=== PATIENT | female | born 1940 | race Caucasian/White ===

== ENCOUNTER → 2023-07-11 12:38 | Outpatient (REF) | payer MEDICARE, OTHER, SELFPAY | LOC: RAD 12:38 | PROVIDERS: ATTENDING PHYSICIAN Surgery Vascular Surgery; FAMILY PHYSICIAN Emergency Medicine | DX: I73.9 Peripheral vascular disease, unspecified (principal) | CPT/HCPCS: 93922; 93925 ==

== ENCOUNTER 2023-09-09 11:05 | Emergency (ER) | payer MEDICARE, OTHER, SELFPAY ==
[2023-09-09 11:11] VITALS: BP 148/83
--- NOTE | 2023-09-09 11:28 | ED.GENMED ---
History of Present Illness
<Adrian Proctor PA-C - Last Filed: 09/09/23 17:56>
General
Chief Complaint: Anxiety
Source: patient
Time Seen by Provider: 09/09/23 11:15
Travel History
Have you had any contact with someone who has COVID-19?: No
Do you have any symptoms of coronavirus? Fever > 100 degrees, chills, cough, shortness of breath, sore throat, loss of taste or smell, muscle aches, or headache?: No
History of Present Illness
History of Present Illness:
83-year-old female presents from [facility] where she lives independently with complaints of fatigue chills sweats and overwhelming anxiety and depression. Last week she was at the [place] for 4 days for evaluation of her mental health. She states
she could not deal with it there as it was too cold. She was always wearing a jacket. She does note ongoing chills and sweats with increased urination. She denies any fever or cough. She is on Effexor, Latuda and trazodone for history of
bipolar. She states her mental health is not good she can go on living like this. She denies thoughts of hurting herself but her will to live his diminished. No other complaints at this time
Past History
<Adrian Proctor PA-C - Last Filed: 09/09/23 17:56>
Past History
ED Past Medical History: Cancer (Colon CA, skin CA Basal cell), COPD, HTN, Psychiatric (Anxiety, depression) and Other (SBO,, PNA, Valve disorder )
ED Past Surgical History: Appendectomy, Bowel resection (Colon resection), Cardiac (Heart surgery mass removed), Gynecological (Hysterectomy), Orthopedic (Right leg reconstruction, Spinal surgery) and Other (cataracts)
Social History
Tobacco: Smoker
Alcohol: None
Drug: None
Personal:
Living: alone
Family History
Family History: Other (NA)
Phy Exam
<Adrian Proctor PA-C - Last Filed: 09/09/23 17:56>
Physical Exam
Physical Exam:
General: Well-appearing female no acute respiratory distress
HEENT: Normocephalic atraumatic
Heart: Regular rate and rhythm no murmurs
Lungs: Slightly coarse at the bases
Abdomen is soft nontender
Extremities: No cyanosis
Psychiatric: Admits to depression with a flat affect denies thoughts of harming self or others. Denies hallucinations. Notes that her will to live is diminishing.
Course
<Adrian Proctor PA-C - Last Filed: 09/09/23 17:56>
Orders/Labs/Results
Orders:
Orders
09/09/23 11:26
CR Chest - 2 Views Urgent
Comment:
Reason For Exam: chills, fatigue
09/09/23 11:29
Crisis Consult Urgent
Reason for Consult: depression
09/09/23 11:48
Basic Metabolic Panel Urgent
Complete Blood Count/With Diff Urgent
TSH Reflex To Free T4 Urgent
Comment: ADD ON
09/09/23 12:13
Add On- LAB Urgent
Tests Added?: tsh reflex to
09/09/23 12:39
Urinalysis Reflex To Culture Urgent
Date Specimen was Collected: 09/09/23
Time Specimen was Collected: 12:36
09/09/23 17:30
COVID-19 Antigen Urgent
Source: Nasal Swab
09/09/23 19:57
Diltiazem [Cardizem] 120 mg PO NOW STA
09/09/23 20:00
Lurasidone HCl [Latuda] 60 mg PO QPM
09/09/23 22:00
Alprazolam [Xanax] 0.25 mg PO HS
Trazodone [Desyrel] 50 mg PO HS
Abnormal Lab Results
09/09/23
11:48
RBC 3.25 L 10^6/uL
(4.20-5.40)
Hgb 9.7 L g/dL
(12.0-16.0)
Hct 28.8 L %
(37.0-47.0)
Plt Count 427 H 10^3/uL
(130-400)
Absolute Monos (auto) 0.9 H 10^3/uL
(0.1-0.6)
Monocytes % 9.7 H %
(1.7-9.3)
BUN 30 H mg/dl
(7-17)
Glucose 109 H mg/dl
(70-99)
Calcium 10.3 H mg/dl
(8.4-10.2)
09/09/23 11:48
09/09/23 11:48
Vital Signs
Initial and Last Documented VS:
Initial Vital Signs
Temp Pulse Resp BP Pulse Ox
36.6 C 89 16 148/83 100
09/09/23 11:11 09/09/23 11:11 09/09/23 11:11 09/09/23 11:11 09/09/23 11:11
Last Documented Vital Signs
Temp Pulse Resp BP Pulse Ox
36.6 C 79 16 148/83 99
09/09/23 11:11 09/09/23 11:55 09/09/23 11:11 09/09/23 11:11 09/09/23 11:55
<Zeyad Wild MD - Last Filed: 09/09/23 20:01>
Orders/Labs/Results
Orders:
Orders
09/09/23 11:26
CR Chest - 2 Views Urgent
Comment:
Reason For Exam: chills, fatigue
09/09/23 11:29
Crisis Consult Urgent
Reason for Consult: depression
09/09/23 11:48
Basic Metabolic Panel Urgent
Complete Blood Count/With Diff Urgent
TSH Reflex To Free T4 Urgent
Comment: ADD ON
09/09/23 12:13
Add On- LAB Urgent
Tests Added?: tsh reflex to
09/09/23 12:39
Urinalysis Reflex To Culture Urgent
Date Specimen was Collected: 09/09/23
Time Specimen was Collected: 12:36
09/09/23 17:30
COVID-19 Antigen Urgent
Source: Nasal Swab
09/09/23 19:57
Diltiazem [Cardizem] 120 mg PO NOW STA
09/09/23 20:00
Lurasidone HCl [Latuda] 60 mg PO QPM
09/09/23 22:00
Alprazolam [Xanax] 0.25 mg PO HS
Trazodone [Desyrel] 50 mg PO HS
Abnormal Lab Results
09/09/23
11:48
RBC 3.25 L 10^6/uL
(4.20-5.40)
Hgb 9.7 L g/dL
(12.0-16.0)
Hct 28.8 L %
(37.0-47.0)
Plt Count 427 H 10^3/uL
(130-400)
Absolute Monos (auto) 0.9 H 10^3/uL
(0.1-0.6)
Monocytes % 9.7 H %
(1.7-9.3)
BUN 30 H mg/dl
(7-17)
Glucose 109 H mg/dl
(70-99)
Calcium 10.3 H mg/dl
(8.4-10.2)
09/09/23 11:48
09/09/23 11:48
Vital Signs
Initial and Last Documented VS:
Initial Vital Signs
Temp Pulse Resp BP Pulse Ox
36.6 C 89 16 148/83 100
09/09/23 11:11 09/09/23 11:11 09/09/23 11:11 09/09/23 11:11 09/09/23 11:11
Last Documented Vital Signs
Temp Pulse Resp BP Pulse Ox
36.6 C 79 16 148/83 99
09/09/23 11:11 09/09/23 11:55 09/09/23 11:11 09/09/23 11:11 09/09/23 11:55
<Adrian Proctor PA-C - Last Filed: 09/09/23 17:56>
MDM/Problems Addressed
Differential Diagnosis Includes:
Depression anxiety. She also has chills and sweats. Will evaluate for any underlying medical issues such as UTI or pneumonia check labs. Crisis consult placed as well
<Adrian Proctor PA-C - Last Filed: 09/09/23 17:56>
*Critical Care Note
Total Time (30-74mins, 75-104mins- exclusive of procedures): Not Applicable
<Adrian Proctor PA-C - Last Filed: 09/09/23 17:56>
Update Note
Update Note:
Patient medically is stable. She has been evaluated by crisis secondary to her depression and decreasing will to live. Crisis evaluated her. Waiting placement in [facility]. They contacted [facility] who has a bed.
Patient still stable. She is willing to wait for bed at [facility]. She does require treatment inpatient psych facility and is medically cleared to do so.
<Zeyad Wild MD - Last Filed: 09/09/23 20:01>
Update Note
Update Note:
Patient medically is stable. She has been evaluated by crisis secondary to her depression and decreasing will to live. Crisis evaluated her. Waiting placement in [facility]. [facility].
Patient still stable. She is willing to wait for bed at [facility]. She does require treatment inpatient psych facility and is medically cleared to do so.
UPDATE (Zeyad Wild MD)
Patient requesting her home nighttime medications�nurse updated medication list and I ordered for home doses.
ED Attending Note
<Adrian Proctor PA-C - Last Filed: 09/09/23 17:56>
-
Portions of this chart may have been created with voice recognition software.� Occasional wrong word or��sound alike� substitutions may have occurred due to the inherent limitations of voice recognition software.
Discharge Plan
Departure
Patient Disposition: Psych Facility
Date of Disposition: 09/09/23
Time of Disposition: 17:55
Discharge Problem:
Depression
Prescriptions:
No Action
aspirin 81 mg Tablet,Delayed Release (Dr/Ec)
81 mg PO DAILY
cholecalciferol (vitamin D3) [Vitamin D3] 125 mcg (5,000 unit) Tablet
125 mcg PO FR@0800
PreserVision AREDS 2,148 mcg-113 mg-45 mg-17.4mg Tablet
1 tab PO BID
clopidogrel 75 mg Tablet
75 mg PO DAILY Qty: 90 0RF
latanoprost 0.005 % Drops
1 drp BOTH EYES HS
nicotine 14 mg/24 hr Patch 24 Hour
1 patch TRANSDERMAL DAILY
Patient Comments:
09/09/2023, pt. currently wearing a patch on her chest.
trazodone 50 mg Tablet
50 mg PO HS
methylphenidate HCl 10 mg tablet
5 mg PO TID@0800,12,17
venlafaxine 150 mg Capsule,Extended Release 24hr
150 mg PO DAILY
acetaminophen [Tylenol Extra Strength] 500 mg Tablet
1,000 mg PO Q6H PRN (Reason: mild pain)
alprazolam 0.25 mg Tablet
0.25 mg PO HS
diltiazem HCl 120 mg Capsule,Extended Release 24hr
120 mg PO BID
hydrochlorothiazide 25 mg Tablet
25 mg PO DAILY
losartan 100 mg Tablet
100 mg PO DAILY
carboxymethylcellulose sodium [Refresh] 1 % Drops, Liquid Gel
2 drp BOTH EYES DAILYPRN PRN (Reason: dry eyes)
Simbrinza 1-0.2 % Drops,Suspension
1 drp BOTH EYES BID
lurasidone 60 mg Tablet
60 mg PO HS
Biotene lozenge
1 lavelle PO TIDPRN PRN (Reason: dry mouth)
atorvastatin 10 mg tablet
10 mg PO DAILY
Referrals:
Humera Ngo MD [Family Provider] -
Interventions
Interventions:
*Risk Screen - Suicide Last Done: 09/09/23 11:12
*General Assessment Last Done: 09/09/23 11:12
*Neglect/Abuse Screening Last Done: 09/09/23 11:12
*ED COVID-19 Vaccine History Last Done: 09/09/23 11:12
ED-Psychological Assessment Last Done: 09/09/23 11:14
Discharge Date and Time
Print Language: ARABIC
[2023-09-09 12:07] LABS: % Basophils 0.3 % (0-2); % Eosinophils 0.8 % (0-6); % Immature Granulocytes 0.4 % (0-0.5); % Lymphocytes 22.3 % (20.5-51.1); % Monocytes 9.7 % (1.7-9.3); % Neutrophils 66.5 % (42.2-75.2); Absolute Eosinophils 0.1 10^3/uL (0-0.7); Absolute Lymphocytes 2.1 10^3/uL (1.2-3.4); Absolute Monocytes 0.9 10^3/uL (0.1-0.6); Absolute Neutrophils 6.3 10^3/uL (1.4-6.5); Hematocrit 28.8 % (37.0-47.0); Hemoglobin 9.7 g/dL (12.0-16.0); Mean Corp Hgb Conc. 33.7 g/dL (33.0-37.0); Mean Corpuscular Hgb 29.8 pg (27.0-31.0); Mean Corpuscular Volume 88.6 fL (81.0-99.0); Mean Platelet Volume 9.5 fL (7.4-10.4); Nucleated Red Blood Cells % 0 %; Platelet Count 427 10^3/uL (130-400); Red Blood Cell Count 3.25 10^6/uL (4.20-5.40); White Blood Cell Count 9.5 10^3/uL (4.8-10.8)
[2023-09-09 12:38] LABS: Blood Urea Nitrogen 30 mg/dl (7-17); Calcium 10.3 mg/dl (8.4-10.2); Carbon Dioxide 28 mmol/L (22-30); Chloride 103 mmol/L (98-107); Estimated Creatinine Clearance 35 ml/min; Glucose 109 mg/dl (70-99); Sodium 136 mmol/L (135-145); eGFR > 60.00
[2023-09-09 12:57] LABS: Urine Albumin Negative (Neg - Trace); Urine Bilirubin Negative (Negative); Urine Character Clear (Clear); Urine Color Yellow; Urine Glucose Negative (Negative); Urine Ketone Negative (Negative); Urine Leukocyte Negative (Negative); Urine Nitrite Negative (Negative); Urine Occult Blood Negative (Negative); Urine Specific Gravity 1.005 (<1.030); Urine Urobilinogen Negative (Neg - 1+)
[2023-09-09 14:11] LABS: TSH Reflex To Free T4 0.98 uIU/ml (0.47-4.68)
[2023-09-09 18:25] LABS: COVID-19 Antigen Negative (Negative)
[2023-09-09] MEDS: CARDIZEM 120 MG PO (21:18)
[2023-09-09] MEDS: LATUDA 60 MG PO (21:18)
[2023-09-09] MEDS: XANAX 0.25 MG PO (21:21)
[2023-09-09 21:22] VITALS: BP 150/90
[2023-09-09] MEDS: DESYREL 50 MG PO (21:22)
[2023-09-10 07:08] VITALS: BP 138/76
--- NOTE | 2023-09-10 07:13 | EDRN ---
this RN entered the pts room to introduce this RN to the pt and to obtain vital signs and assess the pt, the pt was pleasant, calm, and cooperative, the pt was agreeable to this RN obtaining vital signs, VS WNL, the pt was agreeable to assessment,
per the pts request the pts PIV was discontinued, provider was made aware, the pt is resting in stretcher in the lowest position, side rails up x1, HOB slightly elevated, the pt stated to this RN that she was cold and this RN provider fresh warm
blankets for the pt, breakfast was ordered for the pt, mental health security sergeant outside of the pts room monitoring the pt, will continue to monitor the pt closely
--- NOTE | 2023-09-10 09:20 | EDRN ---
crisis staff spoke with this RN and notified this RN that the pt will be going to [facility] today between 12 and , this RN was given the number to call verbal report and this RN attempted to call verbal report at the number of [phone] with
no answer, this RN will attempt to call back
--- NOTE | 2023-09-10 10:00 | EDRN ---
this RN attempted to call verbal report to the receiving nurse at [facility] at [phone] and this RN was transferred to the nurses station and this RN gave verbal report to Jo Ann
--- NOTE | 2023-09-10 10:56 | EDRN ---
Crisis staff notified this RN that warehouse picker time for the pt is 12pm, this RN entered the pts room to notify the pt and the pt stated to this RN that, 'I have morning medications that need to be given', this RN looked in the pts chart and noted that
there were not any morning medications ordered, this RN noticed that the medication reconciliation was performed and this RN notified Dr. Ni who stated he will look at the pts medication reconciliation
== END 2023-09-10 11:53 ==
LOC: EMR 11:05
PROVIDERS: Physician Assistant; EMERGENCY PHYSICIAN Emergency Medicine; FAMILY PHYSICIAN Emergency Medicine
DX: F32.A Depression, unspecified (principal); F41.9 Anxiety disorder, unspecified; F17.200 Nicotine dependence, unspecified, uncomplicated
CPT/HCPCS: 99285; 71046; 80048; 81003; 84443; 85025; 87811

== ENCOUNTER → 2023-12-11 12:13 | Outpatient (REF) | payer MEDICARE, OTHER, SELFPAY | LOC: RAD 12:13 | PROVIDERS: ATTENDING PHYSICIAN Surgery Vascular Surgery; FAMILY PHYSICIAN Emergency Medicine | DX: I73.9 Peripheral vascular disease, unspecified (principal) | CPT/HCPCS: 93922; 93925 ==

== ENCOUNTER → 2024-01-20 12:26 | Outpatient (REF) | payer OTHER, MEDICARE, SELFPAY ==
[2024-01-20 18:36] LABS: % Basophils 0.6 % (0-2); % Eosinophils 4.2 % (0-6); % Immature Granulocytes 0.1 % (0-0.5); % Lymphocytes 39.5 % (20.5-51.1); % Monocytes 13.3 % (1.7-9.3); % Neutrophils 42.3 % (42.2-75.2); Absolute Basophils 0.1 10^3/uL (0-0.2); Absolute Eosinophils 0.3 10^3/uL (0-0.7); Absolute Lymphocytes 3.2 10^3/uL (1.2-3.4); Absolute Monocytes 1.1 10^3/uL (0.1-0.6); Absolute Neutrophils 3.5 10^3/uL (1.4-6.5); Hematocrit 28.3 % (37.0-47.0); Hemoglobin 8.9 g/dL (12.0-16.0); Mean Corp Hgb Conc. 31.4 g/dL (33.0-37.0); Mean Corpuscular Hgb 29.7 pg (27.0-31.0); Mean Corpuscular Volume 94.3 fL (81.0-99.0); Mean Platelet Volume 9.6 fL (7.4-10.4); Nucleated Red Blood Cells % 0 %; Platelet Count 368 10^3/uL (130-400); Red Cell Dist. Width 16.6 % (11.5-14.5); White Blood Cell Count 8.2 10^3/uL (4.8-10.8)
[2024-01-20 18:48] LABS: ALT (SGPT) 10 U/L (0-35); AST (SGOT) 18 U/L (14-36); Albumin 3.5 g/dl (3.5-5.0); Alkaline Phosphatase 70 U/L (38-126); Blood Urea Nitrogen 24 mg/dl (7-17); Calcium 9.7 mg/dl (8.4-10.2); Carbon Dioxide 28 mmol/L (22-30); Chloride 106 mmol/L (98-107); Glucose 74 mg/dl (70-99); Magnesium 2.2 mg/dl (1.6-2.3); Potassium 3.5 mmol/L (3.5-5.1); Sodium 142 mmol/L (135-145); Total Bilirubin 0.3 mg/dl (0.2-1.3); Total Protein 5.6 g/dl (6.3-8.2); eGFR > 60.00
== END ==
LOC: OLABN 12:26
PROVIDERS: ATTENDING PHYSICIAN Student in an Organized Health Care Education/Training Program
DX: I10 Essential (primary) hypertension (principal); D64.9 Anemia, unspecified; E83.42 Hypomagnesemia
CPT/HCPCS: 36415; 80053; 83735; 85025

== ENCOUNTER → 2024-01-22 09:37 | Outpatient (REF) | payer OTHER, MEDICARE, SELFPAY ==
[2024-01-22 11:31] LABS: Blood Urea Nitrogen 20 mg/dl (7-17); Calcium 9.7 mg/dl (8.4-10.2); Carbon Dioxide 23 mmol/L (22-30); Chloride 107 mmol/L (98-107); Glucose 80 mg/dl (70-99); Potassium 3.5 mmol/L (3.5-5.1); Sodium 143 mmol/L (135-145); eGFR > 60.00
== END ==
LOC: OLABN 09:37
PROVIDERS: ATTENDING PHYSICIAN Student in an Organized Health Care Education/Training Program
DX: I10 Essential (primary) hypertension (principal)
CPT/HCPCS: 36415; 80048

== ENCOUNTER → 2024-01-26 12:18 | Outpatient (REF) | payer OTHER, MEDICARE, SELFPAY ==
[2024-01-26 13:56] LABS: Reticulocyte Count 1.5 % (0.4-2.8)
[2024-01-26 14:13] LABS: Iron 35 ug/dl (37-170)
[2024-01-26 14:22] LABS: Percent Saturation 12 % (20-50); Total Iron Binding Capacity 281 ug/dl (265-497)
[2024-01-26 14:42] LABS: Ferritin 18.4 ng/ml (11.1-264.0)
[2024-01-27 10:45] LABS: Folate 8.2 ng/ml (2.76-20)
[2024-01-29 03:43] LABS: Transferrin 228 mg/dL (200-360)
== END ==
LOC: OLABN 12:18
PROVIDERS: ATTENDING PHYSICIAN Student in an Organized Health Care Education/Training Program
DX: D64.9 Anemia, unspecified (principal)
CPT/HCPCS: 36415; 82728; 82746; 83540; 83550; 84466; 85045

== ENCOUNTER → 2024-01-30 12:42 | Outpatient (REF) | payer OTHER, MEDICARE, SELFPAY ==
[2024-01-30 13:28] LABS: Hematocrit 25.6 % (37.0-47.0); Hemoglobin 8.2 g/dL (12.0-16.0); Mean Corpuscular Hgb 28.3 pg (27.0-31.0); Mean Corpuscular Volume 88.3 fL (81.0-99.0); Mean Platelet Volume 9.4 fL (7.4-10.4); Platelet Count 351 10^3/uL (130-400); Red Cell Dist. Width 16.1 % (11.5-14.5); White Blood Cell Count 8.1 10^3/uL (4.8-10.8)
== END ==
LOC: OLABN 12:42
PROVIDERS: ATTENDING PHYSICIAN Student in an Organized Health Care Education/Training Program
DX: D63.8 Anemia in other chronic diseases classified elsewhere (principal); I95.9 Hypotension, unspecified
CPT/HCPCS: 36415; 85027

== ENCOUNTER → 2024-02-05 11:10 | Outpatient (REF) | payer OTHER, MEDICARE, SELFPAY ==
[2024-02-05 11:26] LABS: Hematocrit 26.3 % (37.0-47.0); Hemoglobin 8.7 g/dL (12.0-16.0); Mean Corp Hgb Conc. 33.1 g/dL (33.0-37.0); Mean Corpuscular Volume 90.7 fL (81.0-99.0); Mean Platelet Volume 9.4 fL (7.4-10.4); Platelet Count 325 10^3/uL (130-400); Red Cell Dist. Width 16.1 % (11.5-14.5)
== END ==
LOC: OLABN 11:10
PROVIDERS: ATTENDING PHYSICIAN Student in an Organized Health Care Education/Training Program
DX: D64.9 Anemia, unspecified (principal)
CPT/HCPCS: 36415; 85027

== ENCOUNTER 2024-02-11 03:23 | Emergency (ER) | payer MEDICARE, OTHER, SELFPAY ==
[2024-02-11 03:24] VITALS: BP 173/95
--- NOTE | 2024-02-11 03:57 | ED.GENMED ---
History of Present Illness
General
Chief Complaint: Fall
Source: patient and family (Daughter via telephone)
Exam Limitations: none
Time Seen by Provider: 02/11/24 03:31
Nursing documentation reviewed up to this point in time: agreed with
History of Present Illness
History of Present Illness:
This a pleasant 83-year-old female from [facility] that presents after unwitnessed fall. She is complaining of left hip pain. Patient had a similar recent fall and had a C1-C2 fracture. She is in a [place] collar. Patient denies hitting her
head. She reports no consciousness. Patient is on Plavix. Patient was unable to ambulate after the fall.
Past History
Past History
ED Past Medical History: Cancer (Colon CA, skin CA Basal cell), COPD, HTN, Psychiatric (Anxiety, depression) and Other (SBO,, PNA, Valve disorder )
ED Past Surgical History: Appendectomy, Bowel resection (Colon resection), Cardiac (Heart surgery mass removed), Gynecological (Hysterectomy), Orthopedic (Right leg reconstruction, Spinal surgery) and Other (cataracts)
Social History
Tobacco: Smoker
Alcohol: None
Drug: None
Personal:
Living: alone
Family History
Family History: Other (NA)
Review of Systems
Review of Systems
Allergies reviewed?: Yes
Other source history: family, ambulance crew and transfer record
All Other Systems: ROS reviewed and negative except as documented in HPI and ROS
Constitutional: Reports no symptoms; Denies fever
EENT: Reports no symptoms
Respiratory: Reports no symptoms
Cardiac: Reports no symptoms
ABD/GI: Reports no symptoms
: Reports no symptoms
Musculoskeletal: Reports joint pain and muscle pain
Skin: Reports no symptoms
Neurological: Denies dizzy, headache or weakness
Endocrine: Reports no symptoms
Hematologic/Lymphatic: Reports no symptoms
Psychiatric: Reports anxiety
Phy Exam
General Physical Exam
General Presentation: well appearing and no apparent distress
General Skin: warm and dry
General Habitus: normal
General Mental: alert
General Hydration: appears well hydrated
ENT Exam
ENT Exam: EOMI, pharynx normal, neck supple and normocephalic
Eye Exam
Eye Exam: PERRL, cornea clear and conjunctiva normal
Cardiovascular Exam
Cardiovascular Exam: regular rate/rhythm, no edema, no murmur and normal peripheral pulses
Pulmonary Exam
Pulmonary Exam: lungs clear, no respiratory distress, no rales, no crackles, no rhonchi, no stridor, no wheezing and no cough
Gastrointestinal Exam
Gastrointestinal Exam: normal bowel sounds, non tender, soft, no organomegaly, no pulsatile mass and non distended
Neurological Exam
Neurological Exam: alert and speech normal
Musculoskeletal Exam
Musculoskeletal Exam: joint swelling (Ecchymosis about the left lateral hip. Tenderness to palpation) and neuro vasc intact
Skin Exam
Skin Exam: other (Ecchymosis)
Psychiatric Exam
Psychiatric Exam: normal mood/affect
Course
Orders/Labs/Results
Orders:
Orders
02/11/24 03:31
Urinalysis Reflex To Culture Urgent
02/11/24 03:48
Type+Screen Urgent
Complete Blood Count/With Diff Urgent
Comprehensive Metabolic Panel Urgent
PTT Urgent
Prothrombin Time Urgent
02/11/24 03:56
CT Cervical Spine W/o Iv Contr Urgent
Comment:
Reason For Exam: known c1c2 fx
CT Head W/o Iv Contrast Urgent
Comment:
Reason For Exam: fall
HYDROmorphone [Dilaudid] 0.5 mg IV NOW STA
02/11/24 03:57
Ondansetron Injectable [Zofran] 4 mg IV NOW STA
02/11/24 04:04
CT Pelvis W/o Iv Contrast Urgent
Comment:
Reason For Exam: left hip pain
Abnormal Lab Results
02/11/24
03:48
WBC 13.0 H 10^3/uL
(4.8-10.8)
RBC 2.72 L 10^6/uL
(4.20-5.40)
Hgb 8.0 L g/dL
(12.0-16.0)
Hct 24.9 L %
(37.0-47.0)
MCHC 32.1 L g/dL
(33.0-37.0)
RDW 16.2 H %
(11.5-14.5)
Abs Immat Gran (auto) 0.1 H 10^3/uL
(0-0.05)
Absolute Neuts (auto) 9.0 H 10^3/uL
(1.4-6.5)
Absolute Monos (auto) 1.4 H 10^3/uL
(0.1-0.6)
Lymphocytes % 18.1 L %
(20.5-51.1)
Monocytes % 10.6 H %
(1.7-9.3)
APTT 35.4 H Sec
(23.4-35.0)
Glucose 100 H mg/dl
(70-99)
Total Protein 6.1 L g/dl
(6.3-8.2)
02/11/24 03:48
02/11/24 03:48
Vital Signs
Initial and Last Documented VS:
Initial Vital Signs
Temp Pulse Resp BP Pulse Ox
98.0 F 83 20 173/95 97
02/11/24 03:24 02/11/24 03:24 02/11/24 03:24 02/11/24 03:24 02/11/24 03:24
Last Documented Vital Signs
Temp Pulse Resp BP Pulse Ox
98.0 F 98 20 149/79 93
02/11/24 03:24 02/11/24 06:49 02/11/24 06:49 02/11/24 06:00 02/11/24 06:14
MDM/Problems Addressed
Differential Diagnosis Includes:
Hip fracture, contusion, musculoskeletal pain, hematoma
MDM/Problems Addressed:
83-year-old female from [facility] with left hip pain
Chronic conditions affecting care:
Subacute C1, C2 fracture of the neck, neuropathy, numbness of arm and leg, coronary artery disease, hypertension
Chronic conditions affecting care: HTN, CAD and Neurological disorder
Acute Exacerbation and/or Progression of Chronic Illness:
Acute left hip fracture. Subacute C1-C2 fracture that was nonoperative at the time of injury
*Radiology
Radiology exam reviewed: radiology read reviewed
*Critical Care Note
Total Time (30-74mins, 75-104mins- exclusive of procedures): 35 (Critical care statement: A total of 35minutes of critical care time was provided for this patient. This time is separate from time utilized to perform the aforementioned documented
procedures. Aggregate critical care time includes only time during which I was engaged in work directl)
Update Note
Update Note:
Acute nondisplaced left femoral subcapital neck fracture. Hip joint alignment is intact. Bone demineralization.
Spinal hardware. Contusions along the left buttock.
[place] texted orthopedic surgery and hospitalist for admission to the hospital. I discussed the CAT scan with patient and daughter who then contacted the other daughter via telephone. Answered several questions. They agreed to be admitted here.
After multiple conversations over [place] text and on the telephone with neurosurgery and orthopedics, orthopedics requested that patient be transferred to [facility].
[place] trauma service consulted. They stated that since this was an isolated hip fracture, patient could go to the medicine service with a consult to orthopedics.
[facility] orthopedics Dr. Chaudhari refuses to accept patient. Dr. Hollie Rodriguez excepted patient for transfer to [facility].
ED Attending Note
-
Portions of this chart may have been created with voice recognition software.� Occasional wrong word or��sound alike� substitutions may have occurred due to the inherent limitations of voice recognition software.
Discharge Plan
Departure
Patient Disposition: Acute Care Hospital
Date of Disposition: 02/11/24
Time of Disposition: 05:26
Admit to: Telemetry
Presentation/result/management discussed w/ accepting MD/DO: Hospitalist
Discharge Problem:
Closed fracture of left hip, Subacute C1-C2 fracture
Prescriptions:
No Action
aspirin 81 mg Tablet,Delayed Release (Dr/Ec)
81 mg PO DAILY
PreserVision AREDS 2,148 mcg-113 mg-45 mg-17.4mg Tablet
1 tab PO DAILY
clopidogrel 75 mg Tablet
75 mg PO DAILY Qty: 90 0RF
latanoprost 0.005 % Drops
1 drp BOTH EYES HS
nicotine 14 mg/24 hr Patch 24 Hour
1 patch TRANSDERMAL DAILY
Patient Comments:
09/09/2023, pt. currently wearing a patch on her chest.
trazodone 50 mg Tablet
50 mg PO HS
alprazolam 0.25 mg Tablet
0.25 mg PO HS
diltiazem HCl 120 mg Capsule,Extended Release 24hr
120 mg PO DAILY
Simbrinza 1-0.2 % Drops,Suspension
1 drp BOTH EYES BID
atorvastatin 10 mg tablet
10 mg PO DAILY
B-12
2,000 mcg PO DAILY
sennosides [senna] 8.6 mg Tablet
17.2 mg PO DAILY
acetaminophen 325 mg Tablet
650 mg PO Q4H PRN (Reason: mild pain/fever >100.4)
lidocaine [Lidocaine Pain Relief] 4 % Adhesive Patch,Medicated
1 patch TOPICAL DAILY
polyethylene glycol 3350 [Miralax] 17 gram Powder In Packet
17 g PO DAILY
nortriptyline 25 mg Capsule
25 mg PO HS
bupropion HCl 100 mg Tablet
100 mg PO BID
ascorbate calcium (vitamin C) 500 mg Tablet
500 mg PO DAILY
furosemide 20 mg Tablet
20 mg PO DAILY
aripiprazole 5 mg Tablet
5 mg PO DAILY
ferrous gluconate 324 mg (38 mg iron) Tablet
324 mg PO DAILY
Referrals:
Cyril Govea DO [Family Provider] -
Hospital Transfer
Other hospital: [facility]
I certify that the patient requires transfer: Yes
Discussed case with accepting physician: Liza/Eva
Reason for transfer: higher level of care, availability of service and specialties available
Interventions
Interventions:
*Risk Screen - Suicide Last Done: 02/11/24 03:24
*General Assessment Last Done: 02/11/24 03:24
*Neglect/Abuse Screening Last Done: 02/11/24 03:24
ED- Fall Risk Assessment Last Done: 02/11/24 03:33
*ED COVID-19 Vaccine History Last Done: 02/11/24 03:31
ED-Musculoskeletal Assessment Last Done: 02/11/24 04:24
ED- Neurological Assessment Last Done: 02/11/24 04:24
ED-Skin Assessment Last Done: 02/11/24 04:24
Discharge Date and Time
Print Language: FAROESE
[2024-02-11] MEDS: DILAUDID 0.5 MG IV (03:59)
[2024-02-11] MEDS: ZOFRAN 4 MG IV (03:59)
[2024-02-11 04:11] LABS: % Basophils 0.5 % (0-2); % Eosinophils 1.8 % (0-6); % Immature Granulocytes 0.4 % (0-0.5); % Lymphocytes 18.1 % (20.5-51.1); % Monocytes 10.6 % (1.7-9.3); % Neutrophils 68.6 % (42.2-75.2); APTT 35.4 Sec (23.4-35.0); Absolute Basophils 0.1 10^3/uL (0-0.2); Absolute Eosinophils 0.2 10^3/uL (0-0.7); Absolute Immature Granulocytes 0.1 10^3/uL (0-0.05); Absolute Lymphocytes 2.4 10^3/uL (1.2-3.4); Absolute Monocytes 1.4 10^3/uL (0.1-0.6); Hematocrit 24.9 % (37.0-47.0); INR 1.06; Mean Corp Hgb Conc. 32.1 g/dL (33.0-37.0); Mean Corpuscular Hgb 29.4 pg (27.0-31.0); Mean Corpuscular Volume 91.5 fL (81.0-99.0); Mean Platelet Volume 9.1 fL (7.4-10.4); Nucleated Red Blood Cells % 0 %; PT 13.6 Sec (11.4-14.6); Platelet Count 363 10^3/uL (130-400); Red Blood Cell Count 2.72 10^6/uL (4.20-5.40); Red Cell Dist. Width 16.2 % (11.5-14.5)
[2024-02-11 04:23] LABS: ALT (SGPT) 19 U/L (0-35); AST (SGOT) 23 U/L (14-36); Albumin 3.9 g/dl (3.5-5.0); Alkaline Phosphatase 72 U/L (38-126); Blood Urea Nitrogen 16 mg/dl (7-17); Calcium 9.6 mg/dl (8.4-10.2); Carbon Dioxide 25 mmol/L (22-30); Chloride 105 mmol/L (98-107); Estimated Creatinine Clearance 40 ml/min; Glucose 100 mg/dl (70-99); Potassium 3.8 mmol/L (3.5-5.1); Sodium 142 mmol/L (135-145); Total Bilirubin 0.4 mg/dl (0.2-1.3); Total Protein 6.1 g/dl (6.3-8.2); eGFR > 60.00
[2024-02-11 04:27] VITALS: BP 172/81
[2024-02-11 05:00] VITALS: BP 156/84
[2024-02-11 06:00] VITALS: BP 149/79
[2024-02-11 07:00] VITALS: BP 157/81
[2024-02-11 08:00] VITALS: BP 139/66
[2024-02-11] MEDS: MORPHINE SULFATE 4 MG IV (08:28)
== END 2024-02-11 08:39 | disposition short-term general hospital (02) ==
LOC: EMR 03:23
PROVIDERS: EMERGENCY PHYSICIAN Student in an Organized Health Care Education/Training Program; FAMILY PHYSICIAN Student in an Organized Health Care Education/Training Program
DX: S72.012A Unspecified intracapsular fracture of left femur, initial encounter for closed fracture (principal); S12.100A Unspecified displaced fracture of second cervical vertebra, initial encounter for closed fracture; S09.90XA Unspecified injury of head, initial encounter; S70.02XA Contusion of left hip, initial encounter; W19.XXXA Unspecified fall, initial encounter; Y92.129 Unspecified place in nursing home as the place of occurrence of the external cause; I10 Essential (primary) hypertension; I25.10 Atherosclerotic heart disease of native coronary artery without angina pectoris; J44.9 Chronic obstructive pulmonary disease, unspecified; F41.9 Anxiety disorder, unspecified; F32.A Depression, unspecified; G62.9 Polyneuropathy, unspecified; M19.90 Unspecified osteoarthritis, unspecified site; F17.200 Nicotine dependence, unspecified, uncomplicated; Z79.02 Long term (current) use of antithrombotics/antiplatelets; Z79.82 Long term (current) use of aspirin; Z98.0 Intestinal bypass and anastomosis status; Z85.038 Personal history of other malignant neoplasm of large intestine; Z85.828 Personal history of other malignant neoplasm of skin; Z88.5 Allergy status to narcotic agent; Z88.8 Allergy status to other drugs, medicaments and biological substances
CPT/HCPCS: 99291; 96374; 96375 ×2; 70450; 72125; 72192; 80053; 85025; 85610; 85730; 86850; 86900; 86901

== ENCOUNTER → 2024-02-24 12:41 | Outpatient (REF) | payer OTHER, MEDICARE, SELFPAY ==
[2024-02-24 13:38] LABS: % Eosinophils 3.4 % (0-6); % Immature Granulocytes 0.6 % (0-0.5); % Lymphocytes 20.5 % (20.5-51.1); % Monocytes 11.3 % (1.7-9.3); % Neutrophils 63.2 % (42.2-75.2); Absolute Basophils 0.1 10^3/uL (0-0.2); Absolute Eosinophils 0.4 10^3/uL (0-0.7); Absolute Immature Granulocytes 0.1 10^3/uL (0-0.05); Absolute Lymphocytes 2.2 10^3/uL (1.2-3.4); Absolute Monocytes 1.2 10^3/uL (0.1-0.6); Absolute Neutrophils 6.6 10^3/uL (1.4-6.5); Hematocrit 29.1 % (37.0-47.0); Hemoglobin 9.4 g/dL (12.0-16.0); Mean Corp Hgb Conc. 32.3 g/dL (33.0-37.0); Mean Corpuscular Hgb 29.7 pg (27.0-31.0); Mean Corpuscular Volume 92.1 fL (81.0-99.0); Mean Platelet Volume 8.4 fL (7.4-10.4); Nucleated Red Blood Cells % 0 %; Platelet Count 717 10^3/uL (130-400); Red Blood Cell Count 3.16 10^6/uL (4.20-5.40); Red Cell Dist. Width 15.7 % (11.5-14.5); White Blood Cell Count 10.5 10^3/uL (4.8-10.8)
[2024-02-24 13:58] LABS: Blood Urea Nitrogen 16 mg/dl (7-17); Calcium 9.4 mg/dl (8.4-10.2); Carbon Dioxide 29 mmol/L (22-30); Chloride 103 mmol/L (98-107); Glucose 91 mg/dl (70-99); Magnesium 2.1 mg/dl (1.6-2.3); Sodium 140 mmol/L (135-145); eGFR > 60.00
== END ==
LOC: OLABN 12:41
PROVIDERS: ATTENDING PHYSICIAN Student in an Organized Health Care Education/Training Program
DX: D64.9 Anemia, unspecified (principal); T50.1X5A Adverse effect of loop [high-ceiling] diuretics, initial encounter
CPT/HCPCS: 36415; 80048; 83735; 85025

== ENCOUNTER → 2024-03-11 13:21 | Outpatient (REF) | payer OTHER, MEDICARE, SELFPAY ==
[2024-03-11 13:50] LABS: % Basophils 0.8 % (0-2); % Immature Granulocytes 0.3 % (0-0.5); % Lymphocytes 34.6 % (20.5-51.1); % Monocytes 16.1 % (1.7-9.3); % Neutrophils 45.2 % (42.2-75.2); Absolute Basophils 0.1 10^3/uL (0-0.2); Absolute Eosinophils 0.2 10^3/uL (0-0.7); Absolute Lymphocytes 2.7 10^3/uL (1.2-3.4); Absolute Monocytes 1.3 10^3/uL (0.1-0.6); Absolute Neutrophils 3.6 10^3/uL (1.4-6.5); Hematocrit 30.1 % (37.0-47.0); Mean Corp Hgb Conc. 33.2 g/dL (33.0-37.0); Mean Corpuscular Hgb 30.8 pg (27.0-31.0); Mean Corpuscular Volume 92.6 fL (81.0-99.0); Mean Platelet Volume 10.3 fL (7.4-10.4); Nucleated Red Blood Cells % 0 %; Platelet Count 253 10^3/uL (130-400); Red Blood Cell Count 3.25 10^6/uL (4.20-5.40); Red Cell Dist. Width 15.8 % (11.5-14.5); White Blood Cell Count 7.9 10^3/uL (4.8-10.8)
[2024-03-11 14:11] LABS: Blood Urea Nitrogen 23 mg/dl (7-17); Calcium 9.2 mg/dl (8.4-10.2); Carbon Dioxide 26 mmol/L (22-30); Chloride 104 mmol/L (98-107); Glucose 89 mg/dl (70-99); Magnesium 2.1 mg/dl (1.6-2.3); Sodium 141 mmol/L (135-145); eGFR > 60.00
== END ==
LOC: OLABN 13:21
PROVIDERS: ATTENDING PHYSICIAN Student in an Organized Health Care Education/Training Program
DX: D63.8 Anemia in other chronic diseases classified elsewhere (principal)
CPT/HCPCS: 36415; 80048; 83735; 85025

== ENCOUNTER → 2024-03-15 11:03 | Outpatient (REF) | payer MEDICARE, OTHER, SELFPAY ==
[2024-03-15 11:37] LABS: Blood Urea Nitrogen 22 mg/dl (7-17); Calcium 9.5 mg/dl (8.4-10.2); Carbon Dioxide 30 mmol/L (22-30); Chloride 103 mmol/L (98-107); Glucose 82 mg/dl (70-99); Sodium 140 mmol/L (135-145); eGFR > 60.00
== END ==
LOC: OLABN 11:03
PROVIDERS: ATTENDING PHYSICIAN Student in an Organized Health Care Education/Training Program
DX: E87.6 Hypokalemia (principal)
CPT/HCPCS: 36415; 80048

== ENCOUNTER → 2024-04-05 11:31 | Outpatient (REF) | payer OTHER, MEDICARE, SELFPAY ==
[2024-04-05 12:19] LABS: % Eosinophils 12.2 % (0-6); % Immature Granulocytes 0.1 % (0-0.5); % Lymphocytes 38.6 % (20.5-51.1); % Monocytes 10.2 % (1.7-9.3); % Neutrophils 37.9 % (42.2-75.2); Absolute Basophils 0.1 10^3/uL (0-0.2); Absolute Eosinophils 1.1 10^3/uL (0-0.7); Absolute Lymphocytes 3.5 10^3/uL (1.2-3.4); Absolute Monocytes 0.9 10^3/uL (0.1-0.6); Absolute Neutrophils 3.4 10^3/uL (1.4-6.5); Hemoglobin 9.5 g/dL (12.0-16.0); Mean Corp Hgb Conc. 31.7 g/dL (33.0-37.0); Mean Corpuscular Hgb 29.9 pg (27.0-31.0); Mean Corpuscular Volume 94.3 fL (81.0-99.0); Mean Platelet Volume 9.2 fL (7.4-10.4); Nucleated Red Blood Cells % 0 %; Platelet Count 398 10^3/uL (130-400); Red Blood Cell Count 3.18 10^6/uL (4.20-5.40); Red Cell Dist. Width 14.7 % (11.5-14.5); White Blood Cell Count 8.9 10^3/uL (4.8-10.8)
[2024-04-05 13:09] LABS: ALT (SGPT) 10 U/L (0-35); AST (SGOT) 19 U/L (14-36); Albumin 3.5 g/dl (3.5-5.0); Alkaline Phosphatase 70 U/L (38-126); Blood Urea Nitrogen 16 mg/dl (7-17); Calcium 9.6 mg/dl (8.4-10.2); Carbon Dioxide 30 mmol/L (22-30); Chloride 102 mmol/L (98-107); Glucose 76 mg/dl (70-99); Potassium 3.4 mmol/L (3.5-5.1); Sodium 144 mmol/L (135-145); Total Bilirubin 0.3 mg/dl (0.2-1.3); eGFR > 60.00
[2024-04-05 13:12] LABS: Erythrocyte Sed Rate 23 mm/hour (0-20)
== END ==
LOC: OLABN 11:31
PROVIDERS: ATTENDING PHYSICIAN Student in an Organized Health Care Education/Training Program
DX: L08.9 Local infection of the skin and subcutaneous tissue, unspecified (principal)
CPT/HCPCS: 36415; 80053; 85025; 85652; 86140

== ENCOUNTER → 2024-04-10 07:51 | Outpatient (REF) | payer OTHER, MEDICARE, SELFPAY ==
[2024-04-10 14:23] LABS: Urine Albumin Trace (Neg - Trace); Urine Bilirubin Negative (Negative); Urine Character Clear (Clear); Urine Color Yellow; Urine Glucose Negative (Negative); Urine Ketone Negative (Negative); Urine Leukocyte Negative (Negative); Urine Nitrite Negative (Negative); Urine Occult Blood Negative (Negative); Urine Urobilinogen Negative (Neg - 1+); Urine pH 6.5 (5.0-9.0)
== END ==
LOC: CLAB 07:51
PROVIDERS: ATTENDING PHYSICIAN Student in an Organized Health Care Education/Training Program
DX: R30.9 Painful micturition, unspecified (principal); R35.0 Frequency of micturition
CPT/HCPCS: 36415; 81003; 87086

== ENCOUNTER → 2024-04-12 09:30 | Outpatient (REF) | payer OTHER, MEDICARE, SELFPAY ==
[2024-04-12 10:33] LABS: % Eosinophils 9.5 % (0-6); % Immature Granulocytes 0.2 % (0-0.5); % Lymphocytes 36.7 % (20.5-51.1); % Monocytes 12.3 % (1.7-9.3); % Neutrophils 40.3 % (42.2-75.2); Absolute Basophils 0.1 10^3/uL (0-0.2); Absolute Eosinophils 0.6 10^3/uL (0-0.7); Absolute Lymphocytes 2.2 10^3/uL (1.2-3.4); Absolute Monocytes 0.7 10^3/uL (0.1-0.6); Absolute Neutrophils 2.4 10^3/uL (1.4-6.5); Hematocrit 26.3 % (37.0-47.0); Hemoglobin 8.4 g/dL (12.0-16.0); Mean Corp Hgb Conc. 31.9 g/dL (33.0-37.0); Mean Corpuscular Hgb 30.2 pg (27.0-31.0); Mean Corpuscular Volume 94.6 fL (81.0-99.0); Mean Platelet Volume 9.4 fL (7.4-10.4); Nucleated Red Blood Cells % 0 %; Platelet Count 330 10^3/uL (130-400); Red Blood Cell Count 2.78 10^6/uL (4.20-5.40); Red Cell Dist. Width 15.3 % (11.5-14.5)
[2024-04-12 10:47] LABS: ALT (SGPT) < 10 U/L (0-35); AST (SGOT) 14 U/L (14-36); Albumin 3.1 g/dl (3.5-5.0); Alkaline Phosphatase 66 U/L (38-126); Blood Urea Nitrogen 21 mg/dl (7-17); Calcium 9.1 mg/dl (8.4-10.2); Carbon Dioxide 29 mmol/L (22-30); Chloride 104 mmol/L (98-107); Glucose 88 mg/dl (70-99); Potassium 3.3 mmol/L (3.5-5.1); Sodium 140 mmol/L (135-145); Total Bilirubin < 0.1 mg/dl (0.2-1.3); Total Protein 5.2 g/dl (6.3-8.2); eGFR > 60.00
[2024-04-12 12:27] LABS: Erythrocyte Sed Rate 15 mm/hour (0-20)
== END ==
LOC: OLABN 09:30
PROVIDERS: ATTENDING PHYSICIAN Student in an Organized Health Care Education/Training Program
DX: L08.9 Local infection of the skin and subcutaneous tissue, unspecified (principal)
CPT/HCPCS: 36415; 80053; 85025; 85652; 86140

== ENCOUNTER → 2024-04-19 09:17 | Outpatient (REF) | payer OTHER, MEDICARE, SELFPAY ==
[2024-04-19 10:56] LABS: % Basophils 0.7 % (0-2); % Eosinophils 9.5 % (0-6); % Immature Granulocytes 0.4 % (0-0.5); % Lymphocytes 13.5 % (20.5-51.1); % Monocytes 9.4 % (1.7-9.3); % Neutrophils 66.5 % (42.2-75.2); Absolute Basophils 0.1 10^3/uL (0-0.2); Absolute Eosinophils 1.1 10^3/uL (0-0.7); Absolute Lymphocytes 1.5 10^3/uL (1.2-3.4); Absolute Neutrophils 7.3 10^3/uL (1.4-6.5); Hematocrit 34.1 % (37.0-47.0); Hemoglobin 10.4 g/dL (12.0-16.0); Mean Corp Hgb Conc. 30.5 g/dL (33.0-37.0); Mean Corpuscular Hgb 30.4 pg (27.0-31.0); Mean Corpuscular Volume 99.7 fL (81.0-99.0); Mean Platelet Volume 9.6 fL (7.4-10.4); Nucleated Red Blood Cells % 0 %; Platelet Count 322 10^3/uL (130-400); Red Blood Cell Count 3.42 10^6/uL (4.20-5.40); Red Cell Dist. Width 15.1 % (11.5-14.5)
[2024-04-19 11:20] LABS: ALT (SGPT) < 10 U/L (0-35); AST (SGOT) 17 U/L (14-36); Albumin 3.7 g/dl (3.5-5.0); Alkaline Phosphatase 74 U/L (38-126); Blood Urea Nitrogen 20 mg/dl (7-17); Calcium 9.5 mg/dl (8.4-10.2); Carbon Dioxide 27 mmol/L (22-30); Chloride 104 mmol/L (98-107); Glucose 92 mg/dl (70-99); Potassium 3.6 mmol/L (3.5-5.1); Sodium 143 mmol/L (135-145); Total Bilirubin 0.2 mg/dl (0.2-1.3); eGFR > 60.00
[2024-04-19 11:56] LABS: Erythrocyte Sed Rate 15 mm/hour (0-20)
== END ==
LOC: OLABN 09:17
PROVIDERS: ATTENDING PHYSICIAN Student in an Organized Health Care Education/Training Program
DX: L08.9 Local infection of the skin and subcutaneous tissue, unspecified (principal)
CPT/HCPCS: 36415; 80053; 85025; 85652; 86140

== ENCOUNTER → 2024-04-26 10:25 | Outpatient (REF) | payer OTHER, MEDICARE, SELFPAY ==
[2024-04-26 11:31] LABS: Hematocrit 32.4 % (37.0-47.0); Hemoglobin 10.3 g/dL (12.0-16.0); Mean Corp Hgb Conc. 31.8 g/dL (33.0-37.0); Mean Corpuscular Hgb 30.9 pg (27.0-31.0); Mean Corpuscular Volume 97.3 fL (81.0-99.0); Mean Platelet Volume 9.6 fL (7.4-10.4); Platelet Count 325 10^3/uL (130-400); Red Blood Cell Count 3.33 10^6/uL (4.20-5.40); Red Cell Dist. Width 14.6 % (11.5-14.5); White Blood Cell Count 7.2 10^3/uL (4.8-10.8)
[2024-04-26 11:55] LABS: Erythrocyte Sed Rate 10 mm/hour (0-20)
[2024-04-26 12:30] LABS: ALT (SGPT) 14 U/L (0-35); AST (SGOT) 17 U/L (14-36); Albumin 3.7 g/dl (3.5-5.0); Alkaline Phosphatase 76 U/L (38-126); Blood Urea Nitrogen 20 mg/dl (7-17); Calcium 9.8 mg/dl (8.4-10.2); Carbon Dioxide 31 mmol/L (22-30); Chloride 100 mmol/L (98-107); Glucose 105 mg/dl (70-99); Potassium 3.2 mmol/L (3.5-5.1); Sodium 138 mmol/L (135-145); Total Bilirubin 0.1 mg/dl (0.2-1.3); Total Protein 6.1 g/dl (6.3-8.2); eGFR > 60.00
== END ==
LOC: OLABN 10:25
PROVIDERS: ATTENDING PHYSICIAN Student in an Organized Health Care Education/Training Program
DX: L08.9 Local infection of the skin and subcutaneous tissue, unspecified (principal)
CPT/HCPCS: 36415; 80053; 85027; 85652; 86140

== ENCOUNTER → 2024-05-03 11:44 | Outpatient (REF) | payer OTHER, MEDICARE, SELFPAY ==
[2024-05-03 12:28] LABS: % Basophils 0.7 % (0-2); % Eosinophils 7.5 % (0-6); % Immature Granulocytes 0.1 % (0-0.5); % Lymphocytes 25.6 % (20.5-51.1); % Monocytes 12.5 % (1.7-9.3); % Neutrophils 53.6 % (42.2-75.2); Absolute Basophils 0.1 10^3/uL (0-0.2); Absolute Eosinophils 0.5 10^3/uL (0-0.7); Absolute Lymphocytes 1.8 10^3/uL (1.2-3.4); Absolute Monocytes 0.9 10^3/uL (0.1-0.6); Absolute Neutrophils 3.8 10^3/uL (1.4-6.5); Hematocrit 31.2 % (37.0-47.0); Hemoglobin 9.6 g/dL (12.0-16.0); Mean Corp Hgb Conc. 30.8 g/dL (33.0-37.0); Mean Corpuscular Volume 97.5 fL (81.0-99.0); Mean Platelet Volume 9.5 fL (7.4-10.4); Nucleated Red Blood Cells % 0 %; Platelet Count 316 10^3/uL (130-400); Red Cell Dist. Width 14.2 % (11.5-14.5); White Blood Cell Count 7.1 10^3/uL (4.8-10.8)
[2024-05-03 12:38] LABS: ALT (SGPT) 11 U/L (0-35); AST (SGOT) 19 U/L (14-36); Albumin 3.5 g/dl (3.5-5.0); Alkaline Phosphatase 68 U/L (38-126); Blood Urea Nitrogen 18 mg/dl (7-17); Calcium 9.7 mg/dl (8.4-10.2); Carbon Dioxide 30 mmol/L (22-30); Chloride 101 mmol/L (98-107); Glucose 85 mg/dl (70-99); Potassium 3.1 mmol/L (3.5-5.1); Sodium 139 mmol/L (135-145); Total Bilirubin 0.2 mg/dl (0.2-1.3); Total Protein 5.7 g/dl (6.3-8.2); eGFR > 60.00
[2024-05-03 13:05] LABS: Erythrocyte Sed Rate 13 mm/hour (0-20)
[2024-05-03 17:51] LABS: Free T4 1.74 ng/dl (0.78-2.19)
[2024-05-03 18:04] LABS: TSH 2.89 uIU/ml (0.47-4.68)
== END ==
LOC: OLABN 11:44
PROVIDERS: ATTENDING PHYSICIAN Student in an Organized Health Care Education/Training Program
DX: L08.9 Local infection of the skin and subcutaneous tissue, unspecified (principal); R25.1 Tremor, unspecified
CPT/HCPCS: 36415; 80053; 84439; 84443; 85025; 85652; 86140

== ENCOUNTER 2024-05-09 10:10 | Inpatient (IN) | payer MEDICARE, OTHER, SELFPAY ==
[2024-05-07] VITALS (8 sets, daily range): BP systolic 142–186; BP diastolic 75–117; BMI 23.3
--- NOTE | 2024-05-07 17:22 | ED.GENMED ---
History of Present Illness
General
Chief Complaint: Fainting Sensation
Source: patient
Exam Limitations: none
Time Seen by Provider: 05/07/24 17:06
History of Present Illness
History of Present Illness:
84-year-old [facility] with complaints of generalized weakness. She was attending deferred to the bathroom and developed lightheadedness and had to let her self down to her knees. There is no full passing out
episode. She has been having loose stool over the past week at least 4 times a day. She describes water coming out. Prior to this she had a PICC line and was receiving IV antibiotics for hip infection. She fell and broke her hip later this fall
after injuring her neck. She has been in rehab for quite some time. She denies abdominal pain or chest pain. She denies shortness of breath. She states she feels very weak and dehydrated. Family does note swelling in the legs.
Past History
Past History
ED Past Medical History: Cancer (Colon CA, skin CA Basal cell), COPD, HTN, Psychiatric (Anxiety, depression) and Other (SBO,, PNA, Valve disorder )
ED Past Surgical History: Appendectomy, Bowel resection (Colon resection), Cardiac (Heart surgery mass removed), Gynecological (Hysterectomy), Orthopedic (Right leg reconstruction, Spinal surgery) and Other (cataracts)
Social History
Tobacco: Smoker
Alcohol: None
Drug: None
Personal:
Living: alone
Family History
Family History: Other (NA)
Phy Exam
Physical Exam
Physical Exam:
General: Cachectic appearing female no acute respiratory distress
HEENT: Normocephalic atraumatic. Mucosa dry
Heart: Regular rate and rhythm
Lungs: Clear no wheeze
Abdomen soft nontender nondistended
Extremities: Mild edema bilateral lower extremities no cyanosis
Neurologic exam: Somnolent but alert arouses to verbal stimuli answers questions no facial asymmetry or unilateral weakness
Course
Orders/Labs/Results
Orders:
Orders
05/07/24 16:52
Electrocardiogram (*1) Urgent
Reason for Study: Vertigo / Dizzy
05/07/24 16:53
EKG- Treatment ONCE
05/07/24 17:19
Norovirus by PCR Urgent
GIA Source: Feces/Stool
Specimen Description:
Date Specimen was Collected: 05/07/24
Time Specimen was Collected: 17:22
STOOL [C difficile Antigen & Toxins] Urgent
GIA Source: Feces/Stool
Specimen Description:
Date Specimen was Collected: 05/07/24
Time Specimen was Collected: 17:22
Stool Culture Urgent
GIA Source: Feces/Stool
Specimen Description:
Date Specimen was Collected: 05/07/24
Time Specimen was Collected: 17:22
CR Chest - 2 Views Urgent
Comment:
Reason For Exam: weakness
05/07/24 17:25
0.9% Sodium Chloride 500 ml [Nss] 500 ml IV BOLUS
05/07/24 18:03
Complete Blood Count/With Diff Urgent
Manual Differential Urgent
NT-proBNP Urgent
05/07/24 19:46
Comprehensive Metabolic Panel Urgent
05/07/24 20:47
Urinalysis Reflex To Culture Urgent
Date Specimen was Collected: 05/07/24
Time Specimen was Collected: 17:23
Abnormal Lab Results
05/07/24 05/07/24
18:03 19:46
RBC 3.18 L 10^6/uL
(4.20-5.40)
Hgb 9.7 L g/dL
(12.0-16.0)
Hct 29.9 L %
(37.0-47.0)
MCHC 32.4 L g/dL
(33.0-37.0)
Lymphocytes (Manual) 19 L %
(20-51)
Monocytes (Manual) 13 H %
(2-9)
Potassium 3.4 L mmol/L
(3.5-5.1)
Carbon Dioxide 31 H mmol/L
(22-30)
BUN 26 H mg/dl
(7-17)
Total Protein 6.0 L g/dl
(6.3-8.2)
05/07/24 18:03
05/07/24 19:46
Vital Signs
Initial and Last Documented VS:
Initial Vital Signs
Temp Pulse Resp BP Pulse Ox
98.7 F 91 18 150/80 95
05/07/24 16:46 05/07/24 16:46 05/07/24 16:46 05/07/24 16:46 05/07/24 16:46
Last Documented Vital Signs
Temp Pulse Resp BP Pulse Ox
98.7 F 83 21 156/85 97
05/07/24 16:46 05/07/24 18:15 05/07/24 18:15 05/07/24 18:00 05/07/24 17:15
MDM/Problems Addressed
Differential Diagnosis Includes:
Fatigue ongoing diarrhea. Near syncopal episode today. Question electrolyte abnormality versus volume depletion. Consider viral illness such as norovirus with stool for C. difficile and get cultures as well
Chest x-ray and urinalysis pending.
*Critical Care Note
Total Time (30-74mins, 75-104mins- exclusive of procedures): Not Applicable
Update Note
Update Note:
Chest x-ray negative urinalysis negative. Patient with profound weakness likely secondary to dehydration from recent GI losses. Patient unable to provide stool sample as of yet. Will plan on admitting patient as patient is having trouble
ambulating secondary to weakness.
ED Attending Note
-
Portions of this chart may have been created with voice recognition software.� Occasional wrong word or��sound alike� substitutions may have occurred due to the inherent limitations of voice recognition software.
Discharge Plan
Departure
Patient Disposition: Admit
Date of Disposition: 05/07/24
Time of Disposition: 21:26
Admit to: Telemetry
Presentation/result/management discussed w/ accepting MD/DO: Hospitalist
Discharge Problem:
Acute dehydration
Prescriptions:
No Action
aspirin 81 mg Tablet,Delayed Release (Dr/Ec)
81 mg PO DAILY
PreserVision AREDS 2,148 mcg-113 mg-45 mg-17.4mg Tablet
1 tab PO DAILY
clopidogrel 75 mg Tablet
75 mg PO DAILY Qty: 90 0RF
latanoprost 0.005 % Drops
1 drp BOTH EYES HS
nicotine 14 mg/24 hr Patch 24 Hour
1 patch TRANSDERMAL DAILY
Patient Comments:
09/09/2023, pt. currently wearing a patch on her chest.
trazodone 50 mg Tablet
50 mg PO HS
alprazolam 0.25 mg Tablet
0.25 mg PO HS
diltiazem HCl 120 mg Capsule,Extended Release 24hr
120 mg PO DAILY
Simbrinza 1-0.2 % Drops,Suspension
1 drp BOTH EYES BID
atorvastatin 10 mg tablet
10 mg PO DAILY
B-12
2,000 mcg PO DAILY
sennosides [senna] 8.6 mg Tablet
17.2 mg PO DAILY
acetaminophen 325 mg Tablet
650 mg PO Q4H PRN (Reason: mild pain/fever >100.4)
lidocaine [Lidocaine Pain Relief] 4 % Adhesive Patch,Medicated
1 patch TOPICAL DAILY
polyethylene glycol 3350 [Miralax] 17 gram Powder In Packet
17 g PO DAILY
nortriptyline 25 mg Capsule
25 mg PO HS
bupropion HCl 100 mg Tablet
100 mg PO BID
ascorbate calcium (vitamin C) 500 mg Tablet
500 mg PO DAILY
furosemide 20 mg Tablet
20 mg PO DAILY
aripiprazole 5 mg Tablet
5 mg PO DAILY
ferrous gluconate 324 mg (38 mg iron) Tablet
324 mg PO DAILY
Referrals:
Cyril Govea DO [Family Provider] -
Interventions
Interventions:
*Risk Screen - Suicide Last Done: 05/07/24 16:46
*General Assessment Last Done: 05/07/24 16:46
ED- Neurological Assessment Last Done: 05/07/24 17:13
ED- Cardiac Assessment Last Done: 05/07/24 17:13
Discharge Date and Time
Print Language: SERBIAN
[2024-05-07] MEDS: NSS 500 IV ×2 (18:06→21:35)
[2024-05-07 18:16] LABS: Hematocrit 29.9 % (37.0-47.0); Hemoglobin 9.7 g/dL (12.0-16.0); Mean Corp Hgb Conc. 32.4 g/dL (33.0-37.0); Mean Corpuscular Hgb 30.5 pg (27.0-31.0); Platelet Count 311 10^3/uL (130-400); Red Blood Cell Count 3.18 10^6/uL (4.20-5.40); Red Cell Dist. Width 14.1 % (11.5-14.5); White Blood Cell Count 7.5 10^3/uL (4.8-10.8)
[2024-05-07 18:33] LABS: NT-proBNP 690 pg/ml
[2024-05-07 18:51] LABS: Band Neutrophils 0 % (0-3); Eosinophils 1 % (0-6); Lymphocytes 19 % (20-51); Monocytes 13 % (2-9); Normal RBC Morphology Yes; Platelets Checked Yes; Segmented Neutrophils 67 % (42-75)
[2024-05-07 19:04] LABS: Total Cells Counted 100
[2024-05-07 20:18] LABS: ALT (SGPT) < 10 U/L (0-35); AST (SGOT) 17 U/L (14-36); Albumin 3.6 g/dl (3.5-5.0); Alkaline Phosphatase 66 U/L (38-126); Blood Urea Nitrogen 26 mg/dl (7-17); Calcium 9.8 mg/dl (8.4-10.2); Carbon Dioxide 31 mmol/L (22-30); Chloride 102 mmol/L (98-107); Glucose 88 mg/dl (70-99); Potassium 3.4 mmol/L (3.5-5.1); Sodium 139 mmol/L (135-145); Total Bilirubin 0.2 mg/dl (0.2-1.3); eGFR > 60.00
[2024-05-07 21:04] LABS: Urine Albumin Trace (Neg - Trace); Urine Bilirubin Negative (Negative); Urine Character Clear (Clear); Urine Color Yellow; Urine Glucose Negative (Negative); Urine Ketone Negative (Negative); Urine Leukocyte Negative (Negative); Urine Nitrite Negative (Negative); Urine Occult Blood Negative (Negative); Urine Urobilinogen Negative (Neg - 1+)
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
[2024-05-08] VITALS (8 sets, daily range): BP systolic 143–188; BP diastolic 82–117; PULSE 90; O2SAT 97; BMI 22.3
--- NOTE | 2024-05-08 00:49 | W.PN.UPDATE ---
Update Note
Progress Note Update
Patient seen in conjunction with KASHMIR. I agree with her findings on history and physical as well as the assessment and plan.
Is an 84-year-old with history of peripheral vascular disease status post stenting to the right lower extremity, chronic lower extremity swelling, COPD, who present presents from facility with worsening weakness and inability to ambulate today.
Patient had no syncopal or presyncopal episode. The patient has been having bowel issues for several weeks now. She reports constipation and hemorrhoids. The patient is getting laxatives several times a day. They have been attempting to get
stool studies but not been successful due to limited output. Per family and patient there was no significant diarrhea but only smears of liquid stool and mild incontinence. There was no melena, hematochezia. She reports abdominal discomfort but
denies any vomiting. She denies any nausea or this time. She has been tolerating p.o. She reports increased weakness in her legs bilaterally. She stated that the legs feel like they are walking on cement. She denies any numbness or tingling.
She denies any pain. There appears to be worse dependent edema compared to prior. No acute changes in medications. It appears that today when the patient attempted to ambulate with a walker she got very weak and was transitioned over to a
wheelchair. She has no chest pain palpitations lightheadedness or dizziness.
In the ED she was afebrile blood pressure was 160/82 with a pulse of 96. Oxygen saturation was 97% on room air. CBC is unchanged from prior at 9.7 with normal WBC and platelet. BUN was 26 with creatinine of 0.8 similar to prior. Potassium was
3.4 otherwise normal electrolytes. Chest x-ray was clear.
Assessment - Patient with weakness likely secondary to chronic swelling and claudication complicated by loose stool.
1. Constipation/diarrhea - Suspect chronic impaction with leakage around stool. Exam is not c/w bowel obstruction and she does not have voluminous stool output. Stool studies pending per ED. No hypotension
- rule out obstruction with CT abd/pelvis non con
- if no obstruction and there is impaction will start aggressive laxative regimen and possibly enema as needed
- topical treatment for hemorrhoids
2. LE swelling - Increase in chronic swelling. Renal function preserved.
- lasix 20mg increase to bid and eval swelling
- elevate legs
- continue aspirin/statin for known claudication
3. Weakness - No focal neurological deficits. No urinary symptoms. U/A clear. No signs of myelopathy.
- hip weakness and leg swelling, diuresis as above, PT eval
management of chronic anxiety, copd, per E D TECH note
DVT PPX
Code status - DNR
[2024-05-08] MEDS: KCL 40 MEQ PO (01:07)
[2024-05-08] MEDS: XANAX 0.25 MG PO ×2 (02:06→21:29)
--- NOTE | 2024-05-08 06:03 | PTCARENOTE ---
Patient received from ED via stretcher. Patient assisted to bed via draw sheet, states she does not feel comfortable standing due to fall at [facility] on 05/07. Patient denies any pain or discomfort. Patient anxious, requesting her night time
Xanax that she did not receive in the ED. KASHMIR Platt made aware. One time order for Xanax 0.25mg ordered. See JUL. Bed alarm placed under patient. Call banerjee within reach. Care ongoing, will monitor.
[2024-05-08] MEDS: FLEET MINERAL OIL ENEMA 133 ML RECTAL (06:25)
[2024-05-08 07:48] LABS: Blood Urea Nitrogen 19 mg/dl (7-17); Calcium 9.5 mg/dl (8.4-10.2); Carbon Dioxide 26 mmol/L (22-30); Chloride 105 mmol/L (98-107); Estimated Creatinine Clearance 52 ml/min; Glucose 96 mg/dl (70-99); Potassium 3.8 mmol/L (3.5-5.1); Sodium 137 mmol/L (135-145); eGFR > 60.00
[2024-05-08 07:49] LABS: % Basophils 0.6 % (0-2); % Eosinophils 0.9 % (0-6); % Immature Granulocytes 0.1 % (0-0.5); % Lymphocytes 21.9 % (20.5-51.1); % Monocytes 15.3 % (1.7-9.3); % Neutrophils 61.2 % (42.2-75.2); Absolute Eosinophils 0.1 10^3/uL (0-0.7); Absolute Lymphocytes 1.5 10^3/uL (1.2-3.4); Absolute Neutrophils 4.1 10^3/uL (1.4-6.5); Hematocrit 30.3 % (37.0-47.0); Hemoglobin 10.3 g/dL (12.0-16.0); Mean Corpuscular Volume 91.3 fL (81.0-99.0); Mean Platelet Volume 9.3 fL (7.4-10.4); Nucleated Red Blood Cells % 0 %; Platelet Count 326 10^3/uL (130-400); Red Blood Cell Count 3.32 10^6/uL (4.20-5.40); Red Cell Dist. Width 13.8 % (11.5-14.5); White Blood Cell Count 6.8 10^3/uL (4.8-10.8)
[2024-05-08] MEDS: MIRALAX 17 GRAMS PO (08:09)
[2024-05-08] MEDS: CARDIZEM CD 120 MG PO (08:10)
[2024-05-08] MEDS: DUPHALAC/CHRONULAC 20 GRAMS PO ×2 (08:10→20:32)
[2024-05-08] MEDS: LOW STRENGTH ASPIRIN 81 MG PO (08:10)
[2024-05-08] MEDS: HEPARIN 5000 UNITS SC (08:10)
[2024-05-08] MEDS: SENOKOT-S 1 TABLET PO ×2 (08:10→20:33)
[2024-05-08] MEDS: LASIX 20 MG PO (08:10)
[2024-05-08] MEDS: WELLBUTRIN REGULAR RELEASE 100 MG PO ×2 (08:11→20:33)
[2024-05-08] MEDS: KCL 20 MEQ PO (08:11)
[2024-05-08] MEDS: SIMBRINZA 1%-0.2% OPHTH SUSP 1 DROP BOTH EYES ×2 (08:11→20:33)
[2024-05-08] MEDS: ABILIFY 5 MG PO (09:41)
--- NOTE | 2024-05-08 10:48 | CON.GI ---
Addendum entered and electronically signed by Jasvir Keating MD 05/08/24 12:56:
Patient seen and examined, agree with nurse practitioner note. The patient is a 84-year-old female with complicated past medical history including remote colon cancer status postresection, hypertension COPD tricuspid valve repair, PAD, with recent
cervical fracture admitted with complaints of bloating, rectal pain and diarrhea. CT scan shows tremendous amount of stool throughout the colon with rectal thickening. On exam she is surprisingly softer than expected, though mild diffuse
tenderness without rebound. Attempts at rectal exam and disimpaction by nurse practitioner were halted due to patient's discomfort. It is reassuring that she does not have significant leukocytosis or rebound on exam. She did not have any
significant results with mineral oil enema. At this point will decrease diet to clear liquid diet, start medical molasses enemas and advised drinking GoLytely from above. If she is unable to evacuate with enemas and MiraLAX may need manual
disimpaction in the operating room, though we will hold on colorectal consult for now.
Original Note:
Consultation
-
Date/Time Consultation Requested: 05/08/24 0850
Date/Time Consultation Performed: 05/08/24 1050
Requesting Provider: Bakari Heaton MD
Performing Provider: KASHMIR Barboza, Tee Keating MD
Reason for Consultation: loose stool, weakness, constipation
Medical History
Chief Complaint / HPI
Chief Complaint: constipation
History of Present Illness:
Pt is an 84yo with multiple medical problems hx colon CA with resection in 2005, SBO, skin CA, HTN, COPD, tricuspid valve repair, cardiac mass removal, SVT, anxiety/depression, PAD with prior angioplasty, neuropathy, C1/2 cervical fracture with
c-collar til 1 week ago and hx recent hip surgery in January then hip infection in February with need for wash out and IV antibiotics with onset of lightheadedness and constipation. Per admission she was on Miralax senna, MOM, Dulcolax suppository
and fleet. On admission CT and abd film with concern for large stool burden.
In review with patient she complaints of bloating, rectal discomfort and feeling of constipation though passing liquid stools. She also has some chronic pill dysphagia but denies GERD, vomiting, or bleeding. Last EGD 2008 with gastritis
without hemorrhage. Colonoscopy 2016 with hemorrhoids patent anastomosis.
Past Medical History
Past Medical History: Arrhythmias (SVT, PAC's,), Cancer (colon CA, basal cell skin CA), COPD, HTN, Valvular Disease, Psychiatric (anxiety/depression) and Other (SBO, PNA)
Past Surgical History: Appendectomy, Bowel Resection, Cardiac (heart surgery for mass removal, tricuspid valve repair), Gynecological (hysterectomy), Orthopedic (Right leg reconstruction, Spinal surgery, hip replacement with infection and wash out
for infection with IV abx therapy) and Other (cataracts, LE angioplasty for non healing wound)
Social History
Tobacco: Former Smoker (many years ago)
Alcohol: None
Drug: None
Living: Halfway
Employment: Retired
Family History
Family History: Other (brother with colon CA)
Allergies / Home Medications
Allergy/AdvReac Type Severity Reaction Status Date / Time
codeine [Codeine] Allergy DIZZINESS Verified 02/11/24 03:34
W\\USE
gabapentin Allergy Hives Verified 02/11/24 03:34
hydrocodone bitartrate Allergy Dizziness Verified 02/11/24 03:34
[From Vicodin]
metoprolol [From Toprol XL] Allergy Tongue Verified 02/11/24 03:34
Swelling
midazolam Allergy HYPOTENSION Verified 02/11/24 03:34
povidone-iodine Allergy Burning Verified 02/11/24 03:34
[From Betadine] and
itching of
skin
rosuvastatin [From Crestor] Allergy Vomiting Verified 02/11/24 03:34
�Medication �Instructions �Recorded
alprazolam 0.25 mg tablet 0.25 mg PO HS 09/09/23
atorvastatin 10 mg tablet 10 mg PO QPM 09/09/23
brinzolamide 1 %-brimonidine 0.2 % 1 drp BOTH EYES BID 09/09/23
eye drops,suspension (Simbrinza)
diltiazem HCl 120 mg 120 mg PO DAILY 09/09/23
capsule,extended release 24 hr
latanoprost 0.005 % eye drops 1 drp BOTH EYES HS 09/09/23
trazodone 50 mg tablet 50 mg PO HS 09/09/23
acetaminophen 325 mg tablet 650 mg PO Q4HPRN PRN mild 02/11/24
pain/fever >100.4
aripiprazole 5 mg tablet 5 mg PO DAILY 02/11/24
bupropion HCl 100 mg tablet 100 mg PO BID 02/11/24
furosemide 20 mg tablet 20 mg PO DAILY 02/11/24
nortriptyline 25 mg capsule 25 mg PO HS 02/11/24
polyethylene glycol 3350 17 gram 17 g PO DAILY 02/11/24
oral powder packet (Miralax)
aspirin 81 mg chewable tablet 81 mg PO DAILY 05/07/24
bisacodyl 10 mg rectal suppository 10 mg MT DAILYPRN PRN 3 days no 05/07/24
bm, mom ineffective
magnesium hydroxide 400 mg/5 mL 30 ml PO HSPRN PRN constipation 05/07/24
oral suspension (Milk of Magnesia)
methocarbamol 750 mg tablet 750 mg PO Q8HPRN PRN 05/07/24
musculoskeletal pain
mineral oil-hydrophil petrolat 1 applic topical DAILY neck 05/07/24
topical ointment
mineral oil-hydrophil petrolat 1 applic topical TIDPRN PRN dryness 05/07/24
topical ointment
phenylephrine 0.25 %-pramoxine 1 1 applic MT QIDPRN PRN hemorrhoids 05/07/24
%-glycerin-wh.petrolatum rectal
cream (Preparation H Maximum
Strength)
potassium chloride 20 mEq 20 meq PO DAILY 05/07/24
tablet,extended release(part/cryst)
sennosides 8.6 mg-docusate sodium 2 tab-cap PO BID 05/07/24
50 mg tablet (Senna-S)
sodium phosphates 19 gram-7 118 ml MT DAILYPRN PRN constipation 05/07/24
gram/118 mL enema (Fleet Enema)
tramadol 50 mg tablet 50 mg PO Q4HPRN PRN severe pain 05/07/24
witch valerie 50 % topical pads 1 pad topical Q4HPRN PRN 05/07/24
(Hemorrhoidal (witch valerie)) hemorrhoids
Review of Systems
-
History Source: Patient and Other (nursing staff )
Constitutional: Reports No Symptoms
EENT: Reports No Symptoms
Respiratory: Reports No Symptoms
Cardiac: Reports No Symptoms
Abdomen/GI: Reports Abdominal Pain, Nausea and Other (bloating )
Musculoskeletal: Reports No Symptoms
Skin: Reports No Symptoms
Neurological: Reports Weakness
Endocrine: Reports No Symptoms
Vital Signs
Temp Pulse Resp BP Pulse Ox
97.9 F 99 19 178/102 99
05/08/24 08:34 05/08/24 08:34 05/08/24 08:34 05/08/24 08:34 05/08/24 08:34
Physical Exam
Exam
General: Other (elderly female )
HEENT: Other (dry lips and mouth)
Respiratory: Clear
Cardiac: Regular Rhythm
GI: Soft, Tender and Distended
Rectal: Other (large stool burden on exam -- pt very tender and decline disimpaction due to pain )
Musculoskeletal: No Clubbing and No Cyanosis
Neuro: Awake, Alert and Other
Psych: Calm
Results
WBC 6.8 10^3/uL (4.8-10.8) 05/08/24 06:48
Hgb 10.3 g/dL (12.0-16.0) L 05/08/24 06:48
Hct 30.3 % (37.0-47.0) L 05/08/24 06:48
MCV 91.3 fL (81.0-99.0) 05/08/24 06:48
Plt Count 326 10^3/uL (130-400) 05/08/24 06:48
Absolute Neuts (auto) 4.1 10^3/uL (1.4-6.5) 05/08/24 06:48
Sodium 137 mmol/L (135-145) 05/08/24 06:48
Potassium 3.8 mmol/L (3.5-5.1) 05/08/24 06:48
Chloride 105 mmol/L (98-107) 05/08/24 06:48
Carbon Dioxide 26 mmol/L (22-30) 05/08/24 06:48
BUN 19 mg/dl (7-17) H 05/08/24 06:48
Creatinine 0.6 mg/dL (0.6-1.0) 05/08/24 06:48
Calcium 9.5 mg/dl (8.4-10.2) 05/08/24 06:48
Total Bilirubin 0.2 mg/dl (0.2-1.3) 05/07/24 19:46
AST 17 U/L (14-36) 05/07/24 19:46
ALT < 10 U/L (0-35) 05/07/24 19:46
Alkaline Phosphatase 66 U/L (38-126) 05/07/24 19:46
Diagnostic Image Results:
05/08/24 -- CT Abd/pelvis Wo Iv Cont
Stercoral colitis. Large volume stool throughout the colon and rectum compatible with constipation.
05/08/24-- CR Abdomen - 1 View
Large volume colonic stool concerning for constipation
Prior GI Procedures:
EGD: 04/2009 [facility] - Z-line regular, 39 cm from the incisors.
- Acute gastritis without hemorrhage. Biopsied.
- Normal 2nd part of the duodenum.
Colonoscopy: [facility] 11/2015- - Non-bleeding internal hemorrhoids.
- Patent, healthy end-to-side colo-colonic anastomosis.
- Biopsies were taken with a cold forceps from the left
colon for evaluation of microscopic colitis.
- The examination was otherwise normal.
Assessment / Plan
-
Pt is an 84yo with multiple medical problems hx colon CA with resection in 2005, SBO, skin CA, HTN, COPD, tricuspid valve repair, cardiac mass removal, SVT, anxiety/depression, PAD with prior angioplasty, neuropathy, C1/2 cervical fracture with
c-collar til 1 week ago and hx recent hip surgery in January then hip infection in February with need for wash out and IV antibiotics with onset of lightheadedness and constipation. Per admission she was on Miralax senna, MOM, Dulcolax suppository
and fleet. On admission CT and abd film with concern for large stool burden.
-constipation with fecal impaction and large colonic stool burden and rectal irritation with large impaction
-lightheadedness on admission
-hx colon CA with prior resection 2005
-SBO
-recent hip surgery in January s/p fall with infection/clean out and abx course since February
-recent cervical fracture with C-collar now completed
-HTN urgency
-mild anemia
-c/o chronic pill dysphagia
other med problems:
-skin CA
-COPD
Tricuspid repair
-cardiac mass removal
-hx SVT
-anxiety/depression
--PAD with prior angioplasty
-neuropathy
PLAN:
etiology of symptoms with large rectal and colonic impaction with distention, rectal pain without vomiting
will change to clear diet
serial MOM enema and add Colyte to give slowly over time as tolerating
if not improving may need colorectal eval for exam under anesthesia
cont rx for HTN per medical team
will need bowel regiment on discharge
with hx colon CA can consider eventual colonoscopy outpatient when symptoms improved to exclude any other underlying colonic process
-
-
Thank you for consultation and allowing me to participate in the patient's care. Please call the business operations director GI physician during the after hours with any questions or concerns.
--- NOTE | 2024-05-08 13:45 | W.PN.UPDATE ---
Update Note
Progress Note Update
Non-billable addendum (H&P submitted 0045 AM today)
Patient admitted last evening for ambulatory dysfunction, weakness and overflow diarrhea with constipation
CT shows Large volume stool throughout the colon and rectum compatible with constipation without obstruction
patient given mineral oil enema without improvement. Milk of magnesia enemas + Golytely ordered by GI
Assessment:
Weakness with lightheadedness, ambulatory dysfunction
- check orthostatics
- add tele
constipation with fecal impaction and large colonic stool burden and rectal irritation with large impaction, with associated overflow diarrhea
Stercoral Colitis
Prior hx of colon CA with resection 2005
- s/p mineral oil enema without success
- start MoM enema and also Nulytely orally per GI
- if no improvement, may need colorectal assistance for EUA
- diet downgrade to clears
- eventually outpatient updated colonoscopy and bowel regimen
HTN with urgency
Hx of SVT
- likely driven by stress/pain
- continue Cardizem
- continue Lasix (+ potassium)
- prn Hydralazine
recent hip surgery in January s/p fall with infection/clean out and abx course since February
recent cervical fracture with C-collar now completed
Chronic anemia
chronic pill dysphagia
COPD
- prn nebs
Anxiety/Depression
- on Xanax/Abilify/Nortriptyline/Trazodone
PAD s/p angioplasty
- continue ASA/Statin
hx of neuropathy
DVT ppx: SC Heparin
Code: DNR/DNI
[2024-05-08] MEDS: ZOSYN 50 IV (17:34)
[2024-05-08] MEDS: APRESOLINE 5 MG IV (17:35)
[2024-05-08] MEDS: ZOFRAN 4 MG IV (17:44)
[2024-05-08] MEDS: MORPHINE SULFATE 1 MG IV (18:19)
[2024-05-08] MEDS: HEPARIN SC ×2 (20:32→23:37)
[2024-05-08] MEDS: PAMELOR 25 MG PO (21:29)
[2024-05-08] MEDS: DESYREL 50 MG PO (21:29)
[2024-05-08] MEDS: XALATAN OPHTHALMIC SOLUTION 1 DROP BOTH EYES (21:31)
[2024-05-09] MEDS: APRESOLINE 5 MG IV
[2024-05-09] MEDS: MORPHINE SULFATE 1 MG IV (00:01)
[2024-05-09] MEDS: ZOSYN 50 IV ×2 (00:01→06:18)
[2024-05-09 03:34] VITALS: BP 155/106
[2024-05-09 05:54] VITALS: BMI 21.4
[2024-05-09] MEDS: DUPHALAC/CHRONULAC 20 GRAMS PO (08:38)
[2024-05-09] MEDS: SIMBRINZA 1%-0.2% OPHTH SUSP 1 DROP BOTH EYES (08:38)
[2024-05-09] MEDS: MIRALAX 17 GRAMS PO (08:38)
[2024-05-09 08:46] VITALS: BP 139/100
--- NOTE | 2024-05-09 09:24 | W.PN.GI.CBS2 ---
Today's Communication / Plan
-
Please see assessment and plan for details.
Assessment / Plan
-
1. Constipation: With stercoral colitis, likely secondary to recent surgeries and narcotics, though exam today much worse than yesterday, worry for perforation. Ordered stat CT, discussed with surgery and internal medicine. Further
recommendations pending CT scan.
Subjective
Subjective
Date of Service: May 09, 2024
Patient with increased pain this morning, some vomiting, only had 1 milk molasses enema yesterday, refused further enemas and GoLytely. She did have small results with the first enema.
Objective
Data Reviewed
Laboratory Data:
Laboratory Results
Total Bilirubin 0.2 mg/dl (0.2-1.3) 05/07/24 19:46
AST 17 U/L (14-36) 05/07/24 19:46
ALT < 10 U/L (0-35) 05/07/24 19:46
Alkaline Phosphatase 66 U/L (38-126) 05/07/24 19:46
Vital Signs and I&O:
Vital Signs
Temp Pulse Resp BP Pulse Ox
98.7 F 114 19 139/100 98
05/09/24 08:46 05/09/24 08:46 05/09/24 08:46 05/09/24 08:46 05/09/24 08:46
I&O
05/08/24 05/09/24 05/10/24
06:59 06:59 06:59
Intake Total 120 / 120 520 / 520
Output Total 400 / 400
Balance -280 / -280 520 / 520
Physical Exam
Physical Exam
General: Mild distress secondary to pain
Abdomen: Much more distended, no bowel sounds, some increased tympany, diffuse tenderness.
--- NOTE | 2024-05-09 10:02 | W.PN.HOSP.TC ---
Today's Communication/Plan
-
stat CT scan
continue IV Zosyn
will update family
Assessment / Plan
Assessment / Plan
Assessment:
Weakness with lightheadedness, ambulatory dysfunction
- check orthostatics
- monitor on tele
constipation with fecal impaction and large colonic stool burden and rectal irritation with large impaction, with associated overflow diarrhea
Stercoral Colitis
Prior hx of colon CA with resection 2005
- s/p mineral oil enema in ER without success
- on 05/08; trialed on MoM enema with minimal results. Also ordered GoLytely but patient refused
- 05/09 with increasing pain concerning for acute Abdomen; made NPO with stat CT pending now
- continue empiric Zosyn started 05/08
- continue PRN morphine for pain control
- GI following
- GS consulted
HTN with urgency
Hx of SVT
- likely driven by stress/pain
- continue Cardizem
- continue Lasix (+ potassium for hypokalemia)
- prn Hydralazine
recent hip surgery in January s/p fall with infection/clean out and abx course since February
recent cervical fracture with C-collar now completed
Chronic anemia
chronic pill dysphagia
COPD
- prn nebs
Anxiety/Depression
- on Xanax/Abilify/Nortriptyline/Trazodone
PAD s/p angioplasty
- continue ASA/Statin
hx of neuropathy
DVT ppx: SC Heparin
Code: DNR/DNI
Anticipated Discharge: > 48 hours
Subjective/Interval History
-
Date of Service: May 09, 2024
increasing pain in last 12-24 hours, vomiting, more lethargic compared to yesterday
only tolerated 1 MoM enema with small results; refused further enemas or Golytely
Objective Data
-
Labs:
Laboratory Results
05/09/24
06:00
WBC Pending
Hgb Pending
Hct Pending
Plt Count Pending
Sodium Pending
Potassium Pending
Chloride Pending
Carbon Dioxide Pending
BUN Pending
Creatinine Pending
Glucose Pending
Calcium Pending
Vital Signs:
Vital Signs
Temp Pulse Resp BP Pulse Ox
98.7 F 114 19 139/100 98
05/09/24 08:46 05/09/24 08:46 05/09/24 08:46 05/09/24 08:46 05/09/24 08:46
I&O
05/08/24 05/09/24 05/10/24
06:59 06:59 06:59
Intake Total 120 / 120 520 / 520
Output Total 400 / 400
Balance -280 / -280 520 / 520
Physical Exam
-
General: Appears in Distress and Pain
HEENT: Normocephalic and Atraumatic
Respiratory: Decreased Breath Sounds; Negative Wheezes
Cardiac: Regular Rhythm, S1/S2 and Tachycardic
GI: Normal Bowel Sounds (no bowel sounds), Tender, Distended and Other (rigid)
Genito-urinary: No Costovertebral Tender
Neuro: AO x 3
Psych: Anxious
Data Reviewed
-
Total Time Spent with Patient (in minutes): 51
Labs: Labs Reviewed by me
--- NOTE | 2024-05-09 10:20 | PTCARENOTE ---
Patient sitting in chair awake, breathing is more labored, HR 56, patient is pale,abdomen is firm, round. Patient incontinent of loose stool. Patient is too weak to stand and walk to stretcher. Physician notified about change is status and wants
patient to have STAT abdominal CT.
--- NOTE | 2024-05-09 10:58 | CM ---
Spoke with attending. Patient .
--- NOTE | 2024-05-09 11:32 | W.PN.DEATH ---
Pronouncement of
-
Called to see patient to pronounce.
No spontaneous heart tones or respirations noted.
Patient not responsive to verbal stimuli.
Patient is pronounced .
Time of : 10:45
Date of : 05/09/24
Cause of : acute perforation of abdomen, constipation with fecal impaction
Family Notified: Yes
--- NOTE | 2024-05-09 14:45 | CHAP ---
Paged for Gloria's family, following her . Family met with the doctor in the family room, and later I joined them there. Provided emotional and spiritual support as they shared background and memories. We then went together to Gloria's room,
where I comforted Gloria's daughters in their grief. After a time, we offered prayers for Gloria, recognizing her [employer] con[employer], and asked peace and blessings for all the family. Assured them of our on-going availability, then gave them privacy
with their mother. Prayer blanket was also provided.
== END 2024-05-09 10:45 | disposition expired | DRG 388 ==
LOC: 3 WEST ACU 10:10
PROVIDERS: Clinical Nurse Specialist Family Health; Physician Assistant; ADMITTING PHYSICIAN Internal Medicine; ATTENDING PHYSICIAN Internal Medicine; EMERGENCY PHYSICIAN Emergency Medicine; FAMILY PHYSICIAN Student in an Organized Health Care Education/Training Program; OTHER PHYSICIAN Internal Medicine Gastroenterology
DX: K56.41 Fecal impaction (principal); K63.1 Perforation of intestine (nontraumatic); I47.10 Supraventricular tachycardia, unspecified; K52.89 Other specified noninfective gastroenteritis and colitis; F17.200 Nicotine dependence, unspecified, uncomplicated; F32.A Depression, unspecified; F41.9 Anxiety disorder, unspecified; Z66 Do not resuscitate; K52.839 Microscopic colitis, unspecified; I10 Essential (primary) hypertension; J44.9 Chronic obstructive pulmonary disease, unspecified; D64.9 Anemia, unspecified; E87.6 Hypokalemia; I16.0 Hypertensive urgency; E86.0 Dehydration; K63.89 Other specified diseases of intestine; R13.10 Dysphagia, unspecified; I73.9 Peripheral vascular disease, unspecified; G62.9 Polyneuropathy, unspecified; E78.5 Hyperlipidemia, unspecified; G47.00 Insomnia, unspecified; I45.10 Unspecified right bundle-branch block; Z98.62 Peripheral vascular angioplasty status; Z96.642 Presence of left artificial hip joint; Z90.49 Acquired absence of other specified parts of digestive tract; Z85.828 Personal history of other malignant neoplasm of skin; Z79.82 Long term (current) use of aspirin; Z85.038 Personal history of other malignant neoplasm of large intestine
CPT/HCPCS: 71046; 74018; 74176; 80048; 80053; 81003; 83880; 85025; 87040; 87070; 93005; 96360; 96361; 97163; 97167; 97535; 99285